=== PATIENT | male | born 1970 | race African-American/Black ===

== ENCOUNTER 2017-11-06 12:51 | Emergency (ER) | payer BC ==
[~2017-11-06] VITALS: Ht 177.8 cm; Wt 109.0 kg
[2017-11-06] MEDS ORDERED: CLONIDINE 0.1MG TABLET PO ONE (14:45)
[2017-11-06 15:11] LABS: BASOPHILS % 0.6 % (0.0-2.0); EOSINOPHILS % 3.1 % (0.0-5.0); HEMATOCRIT. 39.9 % (42.0-52.0); HEMOGLOBIN. 13.7 g/dL (14.0-18.0); LYMPHOCYTES % 26.2 % (20.0-50.0); MEAN CORPUSCULAR HEMOGLOBIN 27.2 pg (28.0-32.0); MEAN PLATELET VOLUME 8.5 fl (7.4-10.4); MONOCYTES % 7.7 % (2.0-8.0); NEUTROPHILS % 62.4 % (40.0-76.0); PLATELET 234 x1000/uL (130-400); RED BLOOD CELL COUNT 5.05 mill/uL (4.7-6.1); RED CELL DISTRIBUTION WIDTH 14.5 % (11.6-14.6)
[2017-11-06 15:15] LABS: INR 1.1; PARTIAL THROMBOPLASTIN TIME 26.3 sec (23.4-31.0)
[2017-11-06 15:16] LABS: CHLORIDE 109 mEq/L (98-107)
[2017-11-06 15:34] LABS: CLARITY URINE CLEAR (CLEAR); COLOR URINE YELLOW (YELLOW); KETONES URINE NEGATIVE (NEGATIVE); LEUKOCYTE ESTERASE URINE TRACE (NEGATIVE); NITRITE URINE NEGATIVE (NEGATIVE); OCCULT BLOOD URINE 1+ (NEGATIVE); PROTEIN URINE 1+ (NEGATIVE); SPECIFIC GRAVITY URINE 1.026 (1.005-1.030)
[2017-11-06] MEDS ORDERED: AMLODIPINE 10MG TABLET PO ONE (16:45)
[2017-11-06 17:39] VITALS: BP 160/109
== END 2017-11-06 17:45 | disposition home or self-care (01) ==
LOC: ER 14:56
DX: I11.9 Hypertensive heart disease without heart failure (principal); I45.10 Unspecified right bundle-branch block; R94.31 Abnormal electrocardiogram [ECG] [EKG]
CPT/HCPCS: 36415; 71045; 80053; 81003; 83880; 85025; 85610; 85730; 93005; 99285; Z7610